=== PATIENT | female | born 2000 | race Two or more races ===

== ENCOUNTER 2020-03-23 21:03 | Emergency (ER) | payer BC, OTHER ==
[~2020-03-23] VITALS: Ht 167.6 cm; Wt 64.8 kg
[2020-03-23] MEDS ORDERED: ACETAMINOPHEN 325 MG TABLET ONE (21:56)
[2020-03-23] MEDS ORDERED: ACETAMINOPHEN 325 MG TABLET PO ONE (22:00)
[2020-03-23 22:06] LABS: BASOPHILS # (AUTO) 0.03 x10^3/uL (0-0.3); BASOPHILS % (AUTO) 0 % (0-1); EOSINOPHILS # (AUTO) 0.41 x10^3/uL (0-0.8); EOSINOPHILS % (AUTO) 6 % (1-7); LYMPHOCYTES # (AUTO) 2.93 x10^3/uL (1-6.1); LYMPHOCYTES % (AUTO) 42 % (22-44); MD NO; MEAN CORPUSCULAR HEMOGLOBIN 28.8 pg (27.0-34.8); MEAN CORPUSCULAR HGB CONC 32.9 g/dL (32.4-35.8); MEAN CORPUSCULAR VOLUME 87.4 fL (80-100); MEAN PLATELET VOLUME 8.2 fL (7.4-10.4); MONOCYTES # (AUTO) 0.55 x10^3/uL (0-1.4); MONOCYTES % (AUTO) 8 % (2-9); NEUTROPHILS # (AUTO) 3.15 x10^3/uL (1.8-8.0); NEUTROPHILS % (AUTO) 45 % (42-75); PLATELET COUNT 210 x10^3/uL (130-400); RED CELL DISTRIBUTION WIDTH 13.1 % (9.6-15.2)
[2020-03-23 22:15] VITALS: BP 133/76
[2020-03-23 22:18] LABS: ALBUMIN 4.1 g/dL (3.4-5.0); ANION GAP 5 mmol/L (5-15); CHLORIDE 109 mmol/L (98-107); CREATININE 0.79 mg/dL (0.55-1.02)
--- NOTE | 2020-03-23 23:03 | NUR ---
REPORT FROM VENICE CASTANON. PT CARE RESPONSIBLITIES ASSUMED.
== END 2020-03-23 23:16 | disposition home or self-care (01) ==
LOC: ED 23:05
DX: R07.89 Other chest pain (principal); R51 Headache; R06.02 Shortness of breath; R94.31 Abnormal electrocardiogram [ECG] [EKG]
CPT/HCPCS: 36415; 71045; 80048; 82040; 85025; 93005; 99285